=== PATIENT | female | born 1980 | race Caucasian/White ===

== ENCOUNTER 2016-07-19 11:50 | Emergency (ER) | payer OTHER ==
[2016-07-19 12:01] VITALS: TEMP 98; BMI 25.7
--- NOTE | 2016-07-19 13:10 | PDOC ---
History of Present Illness - General Chief Complaint: Chest Pain Stated Complaint: CHEST PAIN Time Seen by Provider: 07/19/16 12:16 History Source: Patient Exam Limitations: No Limitations, Language Barrier (mixer blender used ) - History of Present Illness Initial Comments: 07/19/16 13:00 This is a 36 yo F with no PMH or PSH, who present to ER due to chest pain x 24 hr. Patient describes pain as mid sternal, sharp, constant, 6/10, w/o aggravating factors but alleviated by rest. It is not affected by respiration. She has has prior 4 self-remitting episodes over the past few mo, usually associated with emotional stress. She complains of dry cough x 1 mo. She denies sob, orthopnea, palpitations, LE edema, weight gain, f/c, night sweats, abd pain , dysuria, diarrhea, constipation, melena, hematochezia. She has no sick contacts. She works as a cleaning lady and lives with her [address] children[address] READ 07/19/16 13:10 07/19/16 13:11 07/19/16 13:21 07/19/16 13:49 Past History - Past Medical History Allergies/Adverse Reactions: Allergies Allergy/AdvReac Type Severity Reaction Status Date / Time No Known Allergies Allergy Verified 07/19/16 12:00 Home Medications: Ambulatory Orders NK [No Known Home Medication] 07/19/16 Anemia: No Asthma: No Cancer: No Cardiac Disorders: No CVA: No COPD: No DVT: No Dementia: No Diabetes: No Dialysis: No GI Disorders: No Disorders: No HTN: No Hypercholesterolemia: No HIV: No Kidney Stones: No Liver Disease: No Psychiatric Problems: No Seizures: No Thyroid Disease: No Lung CA: No - Surgical History Abdominal Surgery: No Appendectomy: No Cardiac Surgery: No Cholecystectomy: No Gastric Stapling: No GI Surgery: No Lung Surgery: No Neurologic Surgery: No - Psycho/Social/Smoking Cessation Hx Suicidal Ideation: No Smoking History: Never smoked Information on smoking cessation initiated: No Review of Systems - Review of Systems Able to Perform ROS?: Yes Is the patient limited Malay proficient: Yes Constitutional: No: Chills, Diaphoresis, Fever, Night Sweats HEENTM: No: Recent change in vision Respiratory: Yes: Cough. No: Orthopnea, Shortness of Breath, Productive cough Cardiac (ROS): Yes: Chest Pain. No: Edema, Irregular Heart Rate, Lightheadedness, Palpitations, Syncope ABD/GI: No: Abdominal Distended, Blood Streaked Bowels, Constipated, Diarrhea, Nausea, Vomiting : No: Dysuria Musculoskeletal: No: Back Pain, Neck Pain Integumentary: No: Pruritus, Rash Neurological: No: Headache, Numbness, Paresthesia Psychiatric: Yes: Stressors Endocrine: No: Excessive Sweating, Flushing, Unexplained Weight Gain, Unexplained Weight Loss Hematologic/Lymphatic: No: Anemia, Blood Clots, Easy Bleeding, Easy Bruising All Other Systems: Reviewed and Negative *Physical Exam - Vital Signs Last Vital Signs Temp Pulse Resp BP Pulse Ox 98 F 64 18 118/82 100 07/19/16 11:52 07/19/16 12:22 07/19/16 11:52 07/19/16 12:22 07/19/16 11:52 - Physical Exam Comments: 07/19/16 13:13 GENERAL: NAD HEENT: PERRLA EOMI, NO LID LAG, NO SCLERAL ICTERUS PULM: CTA B/L CV: RRR S1S1, NO MUMMUR OR RUB, NO JVD, REPRODUCIBLE MIDSTERNAL CHEST PAIN BY PRESSING ABD: SOFT, NONTENDER, NONDOSTENDED, NORMAL BOWEL SOUNDS, NO MASS OR ORGANOMEGALY SKIN: WARM, DRY, NORMAL TURGOR NEURO: CN GROSSLY INTACT EXTREMITIES: NO PERIPHERAL EDEMA. 07/19/16 13:20 07/19/16 13:22 Heart Score/ECG Review - History History: Slightly suspicious - Electrocardiogram EKG: Normal - Age Age: </= 45 - Risk Factors Based on the list above the patient has:: No risk factors known #1 ECG reviewed & interpreted by me at: 13:05 (NS 60, ) ED Treatment Course - LABORATORY CBC & Chemistry Diagram: 07/19/16 14:10 07/19/16 14:10 Medical Decision Making - Medical Decision Making 07/19/16 15:58 Patient has negative cbc, cmp, cardiac profile and troponin, EKG is unremarkable. This reproducible chest pain is most likely musculoskeletal in nature. CXR unremarkable stable for d/c home 07/19/16 16:21 07/19/16 16:21 *DC/Admit/Observation/Transfer Diagnosis at time of Disposition: Musculoskeletal chest pain - Discharge Dispostion Disposition: HOME Condition at time of disposition: Good Admit: No - Referrals Referrals: Gabby Serrano MD [Primary Care Provider] - - Patient Instructions Printed Discharge Instructions: DI for Atypical Chest Pain Print Language: NEPALI
--- NOTE | 2016-07-19 13:48 | PDOC ---
Attending Attestation - Resident Resident Name: AmarilysEli - ED Attending Attestation I have performed the following: I have examined & evaluated the patient, The case was reviewed & discussed with the resident, I agree w/resident's findings & plan, Exceptions are as noted - HPI HPI: 07/19/16 13:44 36-year-old female with no severe past medical history followed by Dr. Cardenas as outpatient presents now with 24 hours of localized substernal chest pain. The pain began while she was at work, no significant physical distress but works in a [email or web address]. The pain has been constant since started, is not associated with any nausea/vomiting/diaphoresis/lightheadedness/shortness of breath/dyspnea/orthopnea. She has had about 3 or 4 episodes of similar pain in the past, has never sought evaluation or had a stress test. No PE risk factors. Denies smoking or drug use - Physicial Exam PE: 07/19/16 13:45 Vital signs normal. Exam is normal. - Medical Decision Making 07/19/16 13:45 Patient seen and evaluated with the resident. I agree with the overall evaluation, assessment, and management with the following summary of visit: 36-year-old female with no significant ACS or PE risk factors presents with otherwise atypical chest pain for 24 hours. Heart scores low, low suspicion for other infectious process. Will check labs including troponin, which would be reassuring after 24 hours of symptoms Chest x-ray EKG Reassess Heart Score/ECG Review #1 ECG reviewed & interpreted by me at: 11:57 General ECG Interpretation: Sinus Rhythm, Normal Rate (61), Normal Intervals, No acute ischemic changes (nonspecific t wave flattening V3) #2 ECG reviewed & interpreted by me at: 12:32 General ECG Interpretation: Sinus Rhythm, Normal Rate (59), Normal Intervals, No acute ischemic changes
[2016-07-19 14:21] LABS: BASOPHIL 0.9 % (0-2.0); EOSINOPHIL 1.5 % (0-4.5); MCH 28.9 pg (25.7-33.7); MCHC 33.6 g/dl (32.0-36.0); MEAN CELL VOLUME 85.9 fl (80-96); MEAN PLT VOLUME 8.3 fl (7.5-11.1); NEUTROPHILS 60.3 % (42.8-82.8); PLATELET COUNT 203 K/MM3 (134-434); RDW 14.1 % (11.6-15.6); WHITE BLOOD COUNT 7.5 K/mm3 (4.0-10.0)
[2016-07-19 14:47] LABS: ALBUMIN 3.8 g/dl (3.4-5.0); ANION GAP 9 (8-16); CALCIUM 8.6 mg/dL (8.5-10.1); CO2 29 mmol/L (21-32); COCKROFT - GAULT 121.3375; CREATININE 0.6 mg/dL (0.55-1.02); GLUCOSE,RANDOM 87 mg/dL (74-106); SGOT/AST 13 U/L (15-37); SGPT/ALT 20 U/L (12-78)
[2016-07-19 14:52] LABS: ALK PHOS 58 U/L (45-117); BILIRUBIN,TOTAL 0.5 mg/dL (0.2-1.0); TOT PROT 7.1 g/dl (6.4-8.2); TROPONIN I < 0.02 ng/ml (0.00-0.05)
[2016-07-19 17:26] VITALS: BP 122/75; PULSE 69
--- NOTE | 2016-07-20 11:44 | EKG ---
Test Reason : Blood Pressure : / mmHG Vent. Rate : 061 BPM Atrial Rate : 061 BPM P-R Int : 138 ms QRS Dur : 098 ms QT Int : 400 ms P-R-T Axes : 059 002 028 degrees QTc Int : 402 ms NORMAL SINUS RHYTHM NONSPECIFIC T WAVE ABNORMALITY ABNORMAL ECG NO PREVIOUS ECGS AVAILABLE Confirmed by FLEX MORTENSEN, RASTA ([id number]) on 07/20/2016 11:43:54 AM Referred By: Confirmed By:RASTA MCCORD MD
--- NOTE | 2016-07-25 14:10 | EKG ---
Test Reason : Blood Pressure : / mmHG Vent. Rate : 060 BPM Atrial Rate : 060 BPM P-R Int : 118 ms QRS Dur : 096 ms QT Int : 414 ms P-R-T Axes : 060 -02 029 degrees QTc Int : 414 ms NORMAL SINUS RHYTHM NORMAL ECG WHEN COMPARED WITH ECG OF 19-JUL-2016 11:57, NO SIGNIFICANT CHANGE WAS FOUND Confirmed by MARION SCHWARTZ MD ([id number]) on 07/25/2016 2:09:53 PM Referred By: MAY Confirmed By:MARION SCHWARTZ MD
== END 2016-07-19 17:28 | disposition home or self-care (01) ==
LOC: JER 11:50
DX: R07.89 Other chest pain (principal)
CPT/HCPCS: 36415; 71010-TC; 80053; 82550; 84484; 84703; 85025; 93005; 93010; 99285-25

== ENCOUNTER → 2018-01-28 | Emergency (ER) | payer SELFPAY ==
[2018-01-28 19:03] VITALS: BP 108/64; PULSE 74; TEMP 98.1; BMI 26.4
--- NOTE | 2018-01-28 19:23 | PDOC ---
History of Present Illness - General Chief Complaint: Respiratory Stated Complaint: CHEST PAIN History Source: Patient Exam Limitations: No Limitations Past History - Past Medical History Allergies/Adverse Reactions: Allergies Allergy/AdvReac Type Severity Reaction Status Date / Time No Known Allergies Allergy Verified 01/28/18 19:03 Home Medications: Ambulatory Orders NK [No Known Home Medication] 07/19/16 Anemia: No Asthma: No Cancer: No Cardiac Disorders: No CVA: No COPD: No DVT: No Dementia: No Diabetes: No Dialysis: No GI Disorders: No Disorders: No HTN: No Hypercholesterolemia: No Kidney Stones: No Liver Disease: No Psychiatric Problems: No Seizures: No Thyroid Disease: No Lung CA: No - Surgical History Abdominal Surgery: No Appendectomy: No Cardiac Surgery: No Cholecystectomy: No Gastric Stapling: No GI Surgery: No Lung Surgery: No Neurologic Surgery: No - Suicide/Smoking/Psychosocial Hx Smoking History: Never smoked *Physical Exam - Vital Signs Last Vital Signs Temp Pulse Resp BP Pulse Ox 98.1 F 74 18 108/64 100 01/28/18 18:59 01/28/18 18:59 01/28/18 18:59 01/28/18 18:59 01/28/18 18:59 Moderate Sedation - Procedure Monitoring Vital Signs: Procedure Monitoring Vital Signs Temperature 98.1 F 01/28/18 18:59 Pulse Rate 74 01/28/18 18:59 Respiratory Rate 18 01/28/18 18:59 Blood Pressure 108/64 01/28/18 18:59 O2 Sat by Pulse Oximetry (%) 100 01/28/18 18:59
--- NOTE | 2018-01-31 13:35 | EKG ---
Test Reason : Blood Pressure : / mmHG Vent. Rate : 073 BPM Atrial Rate : 073 BPM P-R Int : 146 ms QRS Dur : 086 ms QT Int : 400 ms P-R-T Axes : 056 -01 027 degrees QTc Int : 440 ms POOR DATA QUALITY, INTERPRETATION MAY BE ADVERSELY AFFECTED NORMAL SINUS RHYTHM NORMAL ECG WHEN COMPARED WITH ECG OF 19-JUL-2016 12:32, NO SIGNIFICANT CHANGE WAS FOUND Confirmed by RASTA MCCORD MD ([id number]) on 01/31/2018 1:35:25 PM Referred By: Confirmed By:RASTA MCCORD MD
== END | disposition left against medical advice (07) ==
LOC: JER 18:57
DX: R07.9 Chest pain, unspecified (principal)
CPT/HCPCS: 93005; 93010; 99282-25

== ENCOUNTER 2023-03-17 12:58 | Emergency (ER) | payer SELFPAY ==
[2023-03-17 13:33] VITALS: BP 118/78; PULSE 71; RESP 18; TEMP 98.2; BMI 30.3
[2023-03-17] MEDS ORDERED: guaiFENesin/D-METHORPHAN HB 10 ML UNIT-DOSE CUPS PO ONE (14:44)
[2023-03-17] MEDS ORDERED: guaiFENesin/D-METHORPHAN HB 10 ML UNIT-DOSE CUPS ONE (14:58)
== END 2023-03-17 16:24 | disposition home or self-care (01) ==
LOC: JERFT 12:58
DX: J11.1 Influenza due to unidentified influenza virus with other respiratory manifestations (principal); R50.9 Fever, unspecified; R05.9 Cough, unspecified; R09.81 Nasal congestion; M54.9 Dorsalgia, unspecified; R51.9 Headache, unspecified; R53.83 Other fatigue; R06.2 Wheezing; Z20.822 Contact with and (suspected) exposure to COVID-19
CPT/HCPCS: 0241U-QW; 71046-TC-FY; 99284-25

== ENCOUNTER 2023-12-02 21:22 | Emergency (ER) | payer OTHER ==
[2023-12-02 21:28] VITALS: BP 132/60; PULSE 80; RESP 18; TEMP 98; BMI 29.5
[2023-12-02] MEDS: PROCHLORPERAZINE INJECTION 10 MG/2 ML VIAL IVPB ONE (22:23)
[2023-12-02] MEDS ORDERED: METOCLOPRAMIDE HCL INJECTION 10 MG/2 ML VIAL ONE (22:24)
[2023-12-02] MEDS ORDERED: ACETAMINOPHEN INJECTION 100 ML ONE (22:25)
[2023-12-02] MEDS: ACETAMINOPHEN 1000 MG/100 ML BAG IVPB ONE (22:49)
[2023-12-02] MEDS: SODIUM CHLORIDE 1,000 ML IV STA (22:49)
[2023-12-02] MEDS: METOCLOPRAMIDE HCL INJECTION 10 MG/2 ML VIAL IVPB ONE (22:49)
== END 2023-12-02 22:58 | disposition left against medical advice (07) ==
LOC: JER 21:22
DX: R07.9 Chest pain, unspecified (principal); R51.9 Headache, unspecified
CPT/HCPCS: 71045-TC-FY; 93005; 93010; 99283-25